=== PATIENT | female | born 1970 | race Hispanic/Latino ===

== ENCOUNTER 2023-12-11 11:14 | Inpatient (IN) | payer OTHER ==
[~2023-12-11] VITALS: Ht 167.6 cm; Wt 85.3 kg
[2023-12-11 12:25] LABS: BASOPHILS # (AUTO) 0.1 (0.0-0.1); BASOPHILS % 0.4 % (0.0-1.0); EOSINOPHILS # (AUTO) 0.1 (0.0-0.4); EOSINOPHILS % 0.4 % (0.0-6.0); HEMATOCRIT 37.5 % (34.2-44.1); HEMOGLOBIN 12.5 g/dL (12.0-16.0); LYMPHOCYTES # (AUTO) 2.2 (1.0-3.2); LYMPHOCYTES % 16.2 % (18.0-39.1); MEAN CORPUSCULAR HEMOGLOBIN 30.5 pg (28-32); MEAN CORPUSCULAR HGB CONC 33.3 g/dL (31-35); MEAN CORPUSCULAR VOLUME 91.5 fL (81-99); MONOCYTES # (AUTO) 1.2 (0.2-0.8); NEUTROPHILS % 73.3 % (38.7-80.0); PLATELET COUNT 451 x10e3/uL (140-360); WHITE BLOOD COUNT 13.62 x10e3/uL (4.8-10.8)
[2023-12-11 12:43] LABS: ALBUMIN 3.1 g/dL (3.5-5.0); ALBUMIN/GLOBULIN RATIO 0.6 (0.8-2.0); ANION GAP 18.9 mmol/L (8-16); BILIRUBIN,TOTAL 0.5 mg/dL (0.2-1.2); CALCIUM 9.5 mg/dL (8.4-10.2); CREATININE, SERUM 0.84 mg/dL (0.57-1.11); TOTAL PROTEIN 8.5 g/dL (6.5-8.1)
[2023-12-11] MEDS ORDERED: Morphine 4mg INJECTION 4 MG/ML INJ IV STA (12:43)
[2023-12-11 12:46] LABS: POTASSIUM 2.9 mmol/L (3.5-5.1)
[2023-12-11 12:57] LABS: CLARITY,URINE TURBID (CLEAR); COLOR,URINE YELLOW (YELLOW); GLUCOSE, URINE NEGATIVE (NEGATIVE); KETONES,URINE TRACE (NEGATIVE); LEUKOCYTE ESTERASE ,URINE NEGATIVE (NEGATIVE); NITRITE,URINE NEGATIVE (NEGATIVE); PH,URINE 6 (5 - 7); PROTEIN,URINE DIPSTICK 1+ (NEGATIVE); URINE UROBILINOGEN 1 mg/dL (0.2 - 1)
[2023-12-11 12:58] LABS: BILIRUBIN,URINE MODERATE (NEGATIVE)
[2023-12-11 13:01] LABS: BACTERIA,URINE MODERATE /HPF; EPITHELIAL CELLS,URINE MODERATE /LPF
[2023-12-11] MEDS: ONDANSETRON HCL INJ 2MG/ML 2ML 2 MG/ML VIAL IV STA (13:50)
[2023-12-11] MEDS: HYDROMORPHONE 1MG/1ML INJ IV STA ×2 (13:50→17:39)
[2023-12-11] MEDS ORDERED: IOPAMIDOL 370 MG/ML 100 ML INFUS..BTL INJ ONE (15:49)
[2023-12-11] MEDS ORDERED: SODIUM CHLORIDE FLUSH 10 ML SYR INJ PRN (18:15)
[2023-12-11] MEDS: SODIUM CHLORIDE 0.9% 1000ML 1,000 ML IV SCH (18:31)
[2023-12-11] MEDS: METRONIDAZOLE 500MG/NS 100ML 100 ML IV SCH (19:24)
[2023-12-11 20:30] VITALS: BP 110/60; PULSE 88; RESP 18; TEMP 98.5; O2SAT 100; O2SAT 98
[2023-12-11 20:41] VITALS: BP 110/60; PULSE 88; RESP 18; TEMP 98.5; O2SAT 100
[2023-12-11] MEDS: ONDANSETRON HCL INJ 2MG/ML 2ML 2 MG/ML VIAL IV PRN (21:35)
[2023-12-11] MEDS: HYDROMORPHONE 1MG/1ML INJ IV PRN (21:35)
[2023-12-11] MEDS ORDERED: ATORVASTATIN CA10 MG PO (21:56)
[2023-12-11] MEDS ORDERED: ULTRAM 50MG50 MG PO (21:56)
[2023-12-11] MEDS ORDERED: BENAZEPRIL-HCT1 EAC3 PO (21:56)
[2023-12-11] MEDS ORDERED: FAMOTIDINE20 MG PO (21:56)
[2023-12-12] VITALS (8 sets, daily range): BP systolic 101–124; BP diastolic 56–77; PULSE 77–92; RESP 12–19; TEMP 97.4–98.9; O2SAT 100
[2023-12-12 10:49] LABS: BASOPHILS # (AUTO) 0.1 (0.0-0.1); BASOPHILS % 0.6 % (0.0-1.0); EOSINOPHILS # (AUTO) 0.1 (0.0-0.4); EOSINOPHILS % 0.8 % (0.0-6.0); HEMATOCRIT 29.7 % (34.2-44.1); LYMPHOCYTES # (AUTO) 1.6 (1.0-3.2); LYMPHOCYTES % 16.3 % (18.0-39.1); MEAN CORPUSCULAR HEMOGLOBIN 31.1 pg (28-32); MEAN CORPUSCULAR HGB CONC 34.3 g/dL (31-35); MEAN CORPUSCULAR VOLUME 90.5 fL (81-99); MONOCYTES # (AUTO) 1.2 (0.2-0.8); MONOCYTES % 11.5 % (4.4-11.3); NEUTROPHILS % 70.1 % (38.7-80.0); PLATELET COUNT 348 x10e3/uL (140-360); RED BLOOD COUNT 3.28 x10e6/uL (3.6-5.1); RED CELL DISTRIBUTION WIDTH 14.1 % (11.7-14.4); WHITE BLOOD COUNT 10.03 x10e3/uL (4.8-10.8)
[2023-12-12 10:51] LABS: HEMOGLOBIN 10.2 g/dL (12.0-16.0)
[2023-12-12 11:04] LABS: ANION GAP 16.8 mmol/L (8-16); CALCIUM 8.2 mg/dL (8.4-10.2); CREATININE, SERUM 0.77 mg/dL (0.57-1.11)
[2023-12-12 11:09] LABS: POTASSIUM 2.8 mmol/L (3.5-5.1)
[2023-12-12] MEDS: POTASSIUM CHLORIDE 10MEQ/100ML 200 ML IV ONE (11:51)
[2023-12-12 13:43] LABS: INR 1.25; PROTHROMBIN TIME 16.5 seconds (11.9-14.5)
[2023-12-12] MEDS ORDERED: SODIUM CHLORIDE 0.9% 250ML 250 ML ONE (14:46)
[2023-12-12] MEDS ORDERED: FENTANYL CITRATE/PF 100MCG/2 ML INJ ONE (14:46)
[2023-12-12] MEDS ORDERED: MIDAZOLAM HCL 2 MG/2 ML VIAL ONE (14:46)
[2023-12-12] MEDS: LACTOBACILLUS ACIDOPHILUS CAPSULE PO SCH (15:00)
[2023-12-12] MEDS: FAMOTIDINE 20 MG/2 ML VIAL IV SCH (17:00)
[2023-12-12] MEDS: MEROPENEM 1 GM in SODIUM CHLORIDE 0.9% 100 ML IV SCH (21:06)
[2023-12-13] VITALS (7 sets, daily range): BP systolic 100–131; BP diastolic 48–83; PULSE 79–103; RESP 16–20; TEMP 98.2–101; O2SAT 98–100
[2023-12-13 07:42] LABS: BASOPHILS # (AUTO) 0.1 (0.0-0.1); BASOPHILS % 0.4 % (0.0-1.0); EOSINOPHILS % 0.3 % (0.0-6.0); HEMATOCRIT 31.1 % (34.2-44.1); HEMOGLOBIN 9.9 g/dL (12.0-16.0); LYMPHOCYTES # (AUTO) 1.5 (1.0-3.2); LYMPHOCYTES % 12.7 % (18.0-39.1); MEAN CORPUSCULAR HEMOGLOBIN 29.9 pg (28-32); MEAN CORPUSCULAR HGB CONC 31.8 g/dL (31-35); MONOCYTES # (AUTO) 0.8 (0.2-0.8); MONOCYTES % 6.5 % (4.4-11.3); NEUTROPHILS # (AUTO) 9.5 (2.1-6.9); NEUTROPHILS % 79.3 % (38.7-80.0); PLATELET COUNT 373 x10e3/uL (140-360); RED BLOOD COUNT 3.31 x10e6/uL (3.6-5.1); RED CELL DISTRIBUTION WIDTH 14.2 % (11.7-14.4); WHITE BLOOD COUNT 11.92 x10e3/uL (4.8-10.8)
[2023-12-13 08:12] LABS: ALANINE AMINOTRANSFERASE 18 IU/L (0-55); ALBUMIN 2.2 g/dL (3.5-5.0); ALBUMIN/GLOBULIN RATIO 0.6 (0.8-2.0); ALKALINE PHOSPHATASE 128 IU/L (40-150); ANION GAP 18.8 mmol/L (8-16); BILIRUBIN,TOTAL 0.4 mg/dL (0.2-1.2); BLOOD UREA NITROGEN < 5 mg/dL (7-26); CALCIUM 8.2 mg/dL (8.4-10.2); CARBON DIOXIDE 19 mmol/L (22-29); CHLORIDE 106 mmol/L (98-107); CREATININE, SERUM 0.68 mg/dL (0.57-1.11); EST GLOMERULAR FILTRATION RATE 105 ML/MIN (>=60); GLUCOSE 76 mg/dL (74-118); SODIUM 141 mmol/L (136-145); TOTAL PROTEIN 6.1 g/dL (6.5-8.1)
[2023-12-13 08:14] LABS: BUN/CREATININE RATIO 7 (6-25); POTASSIUM 2.8 mmol/L (3.5-5.1)
[2023-12-13] MEDS: TRAMADOL HCL 50 MG TAB PO PRN (08:42)
[2023-12-13] MEDS ORDERED: POTASSIUM CHLORIDE 10MEQ EA PO SCH (08:45)
[2023-12-13] MEDS: POTASSIUM CHLORIDE 10MEQ EA PO ONE ×2 (09:41→10:50)
[2023-12-13] MEDS: ACETAMINOPHEN 325 MG TAB PO PRN (16:27)
[2023-12-14] VITALS (8 sets, daily range): BP systolic 122–133; BP diastolic 61–80; PULSE 75–84; RESP 18–19; TEMP 97.9–99.6; O2SAT 97–100
[2023-12-14] MEDS ORDERED: MEROPENEM 1 GM VIAL ONE (04:29)
[2023-12-14 05:30] LABS: BASOPHILS # (AUTO) 0.1 (0.0-0.1); BASOPHILS % 0.5 % (0.0-1.0); EOSINOPHILS % 0.3 % (0.0-6.0); HEMATOCRIT 28.7 % (34.2-44.1); HEMOGLOBIN 9.7 g/dL (12.0-16.0); LYMPHOCYTES # (AUTO) 1.4 (1.0-3.2); LYMPHOCYTES % 12.2 % (18.0-39.1); MEAN CORPUSCULAR HEMOGLOBIN 30.2 pg (28-32); MEAN CORPUSCULAR HGB CONC 33.8 g/dL (31-35); MEAN CORPUSCULAR VOLUME 89.4 fL (81-99); MONOCYTES # (AUTO) 0.7 (0.2-0.8); MONOCYTES % 6.2 % (4.4-11.3); NEUTROPHILS # (AUTO) 8.8 (2.1-6.9); NEUTROPHILS % 79.5 % (38.7-80.0); PLATELET COUNT 335 x10e3/uL (140-360); RED BLOOD COUNT 3.21 x10e6/uL (3.6-5.1); WHITE BLOOD COUNT 11.06 x10e3/uL (4.8-10.8)
[2023-12-14 05:55] LABS: ALANINE AMINOTRANSFERASE 14 IU/L (0-55); ALBUMIN 2.1 g/dL (3.5-5.0); ALBUMIN/GLOBULIN RATIO 0.6 (0.8-2.0); ALKALINE PHOSPHATASE 68 IU/L (40-150); ANION GAP 16.3 mmol/L (8-16); BILIRUBIN,TOTAL 0.3 mg/dL (0.2-1.2); BLOOD UREA NITROGEN < 5 mg/dL (7-26); CALCIUM 7.8 mg/dL (8.4-10.2); CARBON DIOXIDE 19 mmol/L (22-29); CHLORIDE 105 mmol/L (98-107); CREATININE, SERUM 0.67 mg/dL (0.57-1.11); EST GLOMERULAR FILTRATION RATE 105 ML/MIN (>=60); GLUCOSE 87 mg/dL (74-118); SODIUM 137 mmol/L (136-145); TOTAL PROTEIN 5.7 g/dL (6.5-8.1)
[2023-12-14 05:59] LABS: BUN/CREATININE RATIO 7 (6-25); POTASSIUM 3.3 mmol/L (3.5-5.1)
[2023-12-14] MEDS: HYDROMORPHONE 1MG/1ML INJ IV PRN (12:14)
[2023-12-14] MEDS: POTASSIUM CHLORIDE 10MEQ EA PO ONE (12:15)
[2023-12-14] MEDS: ENOXAPARIN SOD INJ 40 MG/0.4 ML SYR SC SCH (16:17)
[2023-12-15 05:08] LABS: BASOPHILS # (AUTO) 0.1 (0.0-0.1); BASOPHILS % 0.5 % (0.0-1.0); EOSINOPHILS # (AUTO) 0.1 (0.0-0.4); EOSINOPHILS % 0.9 % (0.0-6.0); HEMATOCRIT 29.6 % (34.2-44.1); HEMOGLOBIN 10.1 g/dL (12.0-16.0); LYMPHOCYTES % 21.5 % (18.0-39.1); MEAN CORPUSCULAR HEMOGLOBIN 30.1 pg (28-32); MEAN CORPUSCULAR HGB CONC 34.1 g/dL (31-35); MEAN CORPUSCULAR VOLUME 88.4 fL (81-99); MONOCYTES # (AUTO) 0.9 (0.2-0.8); MONOCYTES % 9.4 % (4.4-11.3); NEUTROPHILS # (AUTO) 6.2 (2.1-6.9); NEUTROPHILS % 66.2 % (38.7-80.0); PLATELET COUNT 346 x10e3/uL (140-360); RED BLOOD COUNT 3.35 x10e6/uL (3.6-5.1); RED CELL DISTRIBUTION WIDTH 13.9 % (11.7-14.4)
[2023-12-15 05:48] LABS: ANION GAP 13.9 mmol/L (8-16); BLOOD UREA NITROGEN < 5 mg/dL (7-26); CALCIUM 7.7 mg/dL (8.4-10.2); CARBON DIOXIDE 21 mmol/L (22-29); CHLORIDE 105 mmol/L (98-107); CREATININE, SERUM 0.58 mg/dL (0.57-1.11); EST GLOMERULAR FILTRATION RATE 109 ML/MIN (>=60); GLUCOSE 83 mg/dL (74-118); POTASSIUM 3.9 mmol/L (3.5-5.1); SODIUM 136 mmol/L (136-145)
[2023-12-15 05:51] LABS: BUN/CREATININE RATIO 9 (6-25)
[2023-12-15 08:25] VITALS: BP 134/78; PULSE 72; RESP 18; TEMP 98.1; O2SAT 100
[2023-12-15 09:02] VITALS: BP 134/78; PULSE 72; RESP 18; TEMP 98.1; O2SAT 100
[2023-12-15] MEDS: HYDROMORPHONE 1MG/1ML INJ IV PRN (09:38)
[2023-12-15 11:35] VITALS: BP 130/86; PULSE 72; RESP 19; TEMP 98; O2SAT 100
[2023-12-15 15:59] VITALS: BP 137/84; PULSE 76; RESP 19; TEMP 98.1; O2SAT 100
[2023-12-15 20:00] VITALS: BP 131/95; PULSE 79; RESP 17; TEMP 98.1; O2SAT 100
[2023-12-15] MEDS: SODIUM CHLORIDE 0.9% 1000ML 1,000 ML IV SCH (22:26)
[2023-12-15] MEDS: METRONIDAZOLE 500MG/NS 100ML 100 ML IV SCH (23:29)
[2023-12-15] MEDS: HYDROCODONE/APAP 7.5MG-325MG 1 EA TAB PO PRN (23:30)
[2023-12-16] VITALS (8 sets, daily range): BP systolic 110–133; BP diastolic 67–76; PULSE 63–77; RESP 16–20; TEMP 97.7–98.4; O2SAT 98–100
[2023-12-16] MEDS: CEFTRIAXONE 2 GM in SODIUM CHLORIDE 0.9% 100 ML IV SCH (08:12)
[2023-12-17 00:12] VITALS: BP 108/66; PULSE 79; RESP 16; TEMP 97.6; O2SAT 100
[2023-12-17 05:12] VITALS: BP 124/68; PULSE 76; RESP 17; TEMP 98.1; O2SAT 98
[2023-12-17 08:00] VITALS: BP 123/72; PULSE 123; RESP 16; TEMP 97.9; O2SAT 99
[2023-12-17 08:33] VITALS: BP 118/76; PULSE 70; RESP 18; TEMP 97.9; O2SAT 100
[2023-12-17] MEDS ORDERED: HYDROCODON-ACE1 EA12 PO (11:29)
[2023-12-17] MEDS ORDERED: METRONIDAZOLE500 MG PO (11:29)
[2023-12-17] MEDS ORDERED: ONDANSETRON HCL4 MG PO (11:33)
[2023-12-17 12:17] VITALS: BP 140/89; PULSE 71; RESP 20; TEMP 97.8; O2SAT 100
== END 2023-12-17 14:44 | disposition home or self-care (01) | DRG 391 ==
LOC: ER 11:25 → ERHOLD 18:10 → MED/SURG2 19:47
PROVIDERS: ADMIT Internal Medicine; ATTEND Internal Medicine
PROC: 0W9J30Z Drainage of Pelvic Cavity with Drainage Device, Percutaneous Approach (ICD-10-PCS; principal; 2023-12-12)
PROC: 02HV33Z Insertion of Infusion Device into Superior Vena Cava, Percutaneous Approach (ICD-10-PCS; 2023-12-15)
DX: K57.20 Diverticulitis of large intestine with perforation and abscess without bleeding (principal); E43 Unspecified severe protein-calorie malnutrition; I10 Essential (primary) hypertension; E78.00 Pure hypercholesterolemia, unspecified; Z11.52 Encounter for screening for COVID-19; E87.6 Hypokalemia; Z68.30 Body mass index [BMI] 30.0-30.9, adult; Z90.49 Acquired absence of other specified parts of digestive tract; Z87.891 Personal history of nicotine dependence; Z88.5 Allergy status to narcotic agent; Z82.49 Family history of ischemic heart disease and other diseases of the circulatory system
CPT/HCPCS: 36415; 36569; 49406; 71045; 74177; 74470; 77012; 80048; 80053; 81001; 83735; 85025; 85610; 87040; 87071; 87075; 87186; 87205; 99252; 99284; C1729; J0696; J1170; J1650; J2185; J2250; J2405; J2543; J3480; J7030; J7050; Q9967; U0002

== ENCOUNTER → 2024-05-07 | Outpatient (REF) | payer OTHER ==
[~2024-05-07] MED LIST: ATORVASTATIN CA10 MG PO; BENAZEPRIL-HCT1 EAC3 PO; FAMOTIDINE20 MG PO; HYDROCODON-ACE1 EA12 PO; METRONIDAZOLE500 MG PO; ONDANSETRON HCL4 MG PO; ULTRAM 50MG50 MG PO
== END ==
LOC: DX 09:47
PROVIDERS: ATTEND Surgery
DX: K57.30 Diverticulosis of large intestine without perforation or abscess without bleeding (principal)
CPT/HCPCS: 74280

== ENCOUNTER 2024-06-07 08:55 | Inpatient (IN) | payer OTHER ==
[2024-06-02 14:04] LABS: BASOPHILS # (AUTO) 0.1 (0.0-0.1); BASOPHILS % 0.5 % (0.0-1.0); EOSINOPHILS # (AUTO) 0.1 (0.0-0.4); EOSINOPHILS % 1.3 % (0.0-6.0); HEMATOCRIT 38.5 % (34.2-44.1); HEMOGLOBIN 12.3 g/dL (12.0-16.0); LYMPHOCYTES # (AUTO) 3.2 (1.0-3.2); LYMPHOCYTES % 33.3 % (18.0-39.1); MEAN CORPUSCULAR HGB CONC 31.9 g/dL (31-35); MEAN CORPUSCULAR VOLUME 100.3 fL (81-99); MONOCYTES # (AUTO) 0.5 (0.2-0.8); MONOCYTES % 5.6 % (4.4-11.3); NEUTROPHILS # (AUTO) 5.7 (2.1-6.9); NEUTROPHILS % 59.1 % (38.7-80.0); PLATELET COUNT 243 x10e3/uL (140-360); RED BLOOD COUNT 3.84 x10e6/uL (3.6-5.1); WHITE BLOOD COUNT 9.71 x10e3/uL (4.8-10.8)
[2024-06-02 14:37] LABS: ALBUMIN 3.8 g/dL (3.5-5.0); BILIRUBIN,TOTAL 0.4 mg/dL (0.2-1.2); CREATININE, SERUM 0.77 mg/dL (0.57-1.11); TOTAL PROTEIN 7.7 g/dL (6.5-8.1)
[2024-06-02 14:41] LABS: CALCIUM 9.6 mg/dL (8.4-10.2)
[~2024-06-07] VITALS: Ht 162.6 cm; Wt 78.9 kg
[2024-06-07] MEDS: LACTATED RINGER'S 1,000 ML ONE (09:52)
[2024-06-07] MEDS ORDERED: MINERAL OIL STERILE 10ML VIAL ONE (10:53)
[2024-06-07] MEDS ORDERED: NALOXONE HCL INJ 0.4 MG/ML AMP IV PRN (14:45)
[2024-06-07] MEDS: FENTANYL CITRATE/PF 100MCG/2 ML INJ ONE (15:05)
[2024-06-07] MEDS: ONDANSETRON HCL INJ 2MG/ML 2ML 2 MG/ML VIAL IV PRN (15:05)
[2024-06-07] MEDS: HYDROMORPHONE 0.2MG/ML-SOD CHL 30ML PCA SYRINGE IV PRN (15:30)
[2024-06-07] MEDS: SODIUM CHLORIDE 0.9% 250ML IRRIG IR SCH (16:26)
[2024-06-07] MEDS: BUPIVACAINE LIPOSOME/PF 266 MG/20 ML IJ ONE (16:26)
[2024-06-07] MEDS: SODIUM CHLORIDE 0.9% 1000ML 1,000 ML IV SCH (16:36)
[2024-06-07 16:42] VITALS: BP 129/81; PULSE 77; RESP 14; TEMP 97.6; O2SAT 96
[2024-06-07 16:50] VITALS: BP 129/81; PULSE 77; RESP 14; TEMP 97.6; O2SAT 96
[2024-06-07 19:50] VITALS: PULSE 78; RESP 16; O2SAT 96
[2024-06-07 20:00] VITALS: BP 134/84; PULSE 81; RESP 18; TEMP 97.5; O2SAT 97
[2024-06-07 21:00] VITALS: BP 134/84; PULSE 81; RESP 18; TEMP 97.5; O2SAT 97
[2024-06-07] MEDS: ACETAMINOPHEN 1000 MG/100 ML IV PRN (21:29)
[2024-06-08] VITALS (11 sets, daily range): BP systolic 124–178; BP diastolic 70–85; PULSE 72–96; RESP 16–21; TEMP 97–98.6; O2SAT 96–100
[2024-06-08 05:40] LABS: BASOPHILS # (AUTO) 0.1 (0.0-0.1); BASOPHILS % 0.3 % (0.0-1.0); HEMATOCRIT 36.6 % (34.2-44.1); HEMOGLOBIN 11.6 g/dL (12.0-16.0); LYMPHOCYTES # (AUTO) 1.7 (1.0-3.2); LYMPHOCYTES % 9.7 % (18.0-39.1); MEAN CORPUSCULAR HEMOGLOBIN 32.2 pg (28-32); MEAN CORPUSCULAR HGB CONC 31.7 g/dL (31-35); MEAN CORPUSCULAR VOLUME 101.7 fL (81-99); MONOCYTES % 5.5 % (4.4-11.3); NEUTROPHILS # (AUTO) 14.9 (2.1-6.9); NEUTROPHILS % 84.2 % (38.7-80.0); PLATELET COUNT 241 x10e3/uL (140-360); RED CELL DISTRIBUTION WIDTH 13.6 % (11.7-14.4); WHITE BLOOD COUNT 17.76 x10e3/uL (4.8-10.8)
[2024-06-08 06:17] LABS: ANION GAP 11.7 mmol/L (8-16); CALCIUM 8.6 mg/dL (8.4-10.2); CREATININE, SERUM 0.81 mg/dL (0.57-1.11); POTASSIUM 4.7 mmol/L (3.5-5.1)
[2024-06-09] VITALS (8 sets, daily range): BP systolic 134–155; BP diastolic 73–94; PULSE 94–99; RESP 16–22; TEMP 97.8–98.6; O2SAT 86–99
[2024-06-09 05:45] LABS: BASOPHILS # (AUTO) 0.1 (0.0-0.1); BASOPHILS % 0.4 % (0.0-1.0); EOSINOPHILS # (AUTO) 0.1 (0.0-0.4); EOSINOPHILS % 0.7 % (0.0-6.0); HEMATOCRIT 32.7 % (34.2-44.1); HEMOGLOBIN 10.3 g/dL (12.0-16.0); LYMPHOCYTES # (AUTO) 1.8 (1.0-3.2); MEAN CORPUSCULAR HEMOGLOBIN 32.7 pg (28-32); MEAN CORPUSCULAR HGB CONC 31.5 g/dL (31-35); MEAN CORPUSCULAR VOLUME 103.8 fL (81-99); MONOCYTES # (AUTO) 0.7 (0.2-0.8); MONOCYTES % 5.4 % (4.4-11.3); NEUTROPHILS # (AUTO) 11.1 (2.1-6.9); NEUTROPHILS % 80.1 % (38.7-80.0); PLATELET COUNT 204 x10e3/uL (140-360); RED BLOOD COUNT 3.15 x10e6/uL (3.6-5.1); RED CELL DISTRIBUTION WIDTH 13.8 % (11.7-14.4); WHITE BLOOD COUNT 13.83 x10e3/uL (4.8-10.8)
[2024-06-09 06:05] LABS: ANION GAP 13.1 mmol/L (8-16); CALCIUM 8.8 mg/dL (8.4-10.2); CREATININE, SERUM 0.68 mg/dL (0.57-1.11); POTASSIUM 4.1 mmol/L (3.5-5.1)
[2024-06-10] VITALS (9 sets, daily range): BP systolic 122–142; BP diastolic 70–84; PULSE 88–95; RESP 16–21; TEMP 97.6–98.9; O2SAT 92–97
[2024-06-10 05:35] LABS: BASOPHILS # (AUTO) 0.1 (0.0-0.1); BASOPHILS % 0.4 % (0.0-1.0); EOSINOPHILS # (AUTO) 0.2 (0.0-0.4); EOSINOPHILS % 1.2 % (0.0-6.0); HEMATOCRIT 30.6 % (34.2-44.1); HEMOGLOBIN 9.7 g/dL (12.0-16.0); LYMPHOCYTES # (AUTO) 1.6 (1.0-3.2); LYMPHOCYTES % 9.1 % (18.0-39.1); MEAN CORPUSCULAR HEMOGLOBIN 32.4 pg (28-32); MEAN CORPUSCULAR HGB CONC 31.7 g/dL (31-35); MEAN CORPUSCULAR VOLUME 102.3 fL (81-99); MONOCYTES # (AUTO) 0.7 (0.2-0.8); MONOCYTES % 4.1 % (4.4-11.3); NEUTROPHILS # (AUTO) 14.4 (2.1-6.9); NEUTROPHILS % 84.6 % (38.7-80.0); PLATELET COUNT 229 x10e3/uL (140-360); RED BLOOD COUNT 2.99 x10e6/uL (3.6-5.1); RED CELL DISTRIBUTION WIDTH 13.2 % (11.7-14.4); WHITE BLOOD COUNT 17.04 x10e3/uL (4.8-10.8)
[2024-06-10 05:52] LABS: ANION GAP 15.4 mmol/L (8-16); CALCIUM 8.6 mg/dL (8.4-10.2); CREATININE, SERUM 0.58 mg/dL (0.57-1.11)
[2024-06-10 05:53] LABS: POTASSIUM 3.4 mmol/L (3.5-5.1)
[2024-06-10] MEDS: BISACODYL 10 MG SUPP PR SCH (19:54)
[2024-06-11] VITALS (10 sets, daily range): BP systolic 134–161; BP diastolic 65–90; PULSE 81–95; RESP 16–21; TEMP 98.2–98.7; O2SAT 95–100
[2024-06-11] MEDS: HYDROCODONE/APAP 7.5MG-325MG 1 EA TAB PO PRN (11:07)
[2024-06-11] MEDS: HYDROMORPHONE 1MG/1ML INJ IV PRN ×2 (15:16→18:14)
[2024-06-11] MEDS: BISACODYL 10 MG SUPP PR SCH (20:32)
[2024-06-12] VITALS (10 sets, daily range): BP systolic 124–179; BP diastolic 73–94; PULSE 76–93; RESP 17–19; TEMP 97.4–98.4; O2SAT 98–100
[2024-06-13] VITALS (10 sets, daily range): BP systolic 120–165; BP diastolic 67–96; PULSE 69–85; RESP 17–18; TEMP 97.8–98.4; O2SAT 96–100
[2024-06-14 00:55] VITALS: BP 124/71; PULSE 74; RESP 17; TEMP 98.7; O2SAT 98
[2024-06-14 04:00] VITALS: BP 118/73; PULSE 80; RESP 18; TEMP 98.2; O2SAT 96
[2024-06-14 08:00] VITALS: BP 135/73; PULSE 83; RESP 18; TEMP 98.3; O2SAT 96
[2024-06-14 08:59] VITALS: BP 118/73; PULSE 80; RESP 18; TEMP 98.2; O2SAT 96
== END 2024-06-14 12:32 | disposition home or self-care (01) | DRG 331 ==
LOC: OR 08:55 → PACU V 14:37 → MED/SURG 16:01 → UNDODISIN 06-14 12:32
PROVIDERS: ADMIT Surgery; ATTEND Surgery
PROC: 0DBP0ZZ Excision of Rectum, Open Approach (ICD-10-PCS; 2024-06-07)
PROC: 0UT60ZZ Resection of Left Fallopian Tube, Open Approach (ICD-10-PCS; 2024-06-07)
PROC: 0UT10ZZ Resection of Left Ovary, Open Approach (ICD-10-PCS; 2024-06-07)
PROC: 0WQF0ZZ Repair Abdominal Wall, Open Approach (ICD-10-PCS; 2024-06-07)
PROC: 0DBN0ZZ Excision of Sigmoid Colon, Open Approach (ICD-10-PCS; principal; 2024-06-07 10:50)
DX: Z43.3 Encounter for attention to colostomy (principal); I10 Essential (primary) hypertension
CPT/HCPCS: 36415; 80048; 80053; 81025; 82948; 85025; 88304; 88305; 88307; 93005; 94799; 99252; J0696; J1171; J2405; J2470; J7030